=== PATIENT | male | born 2000 | race Asian ===

== ENCOUNTER 2022-04-30 21:51 | Emergency (ER) | payer OTHER ==
[2022-05-01 00:38] VITALS: BP 119/81
== END 2022-05-01 00:42 | disposition home or self-care (01) ==
LOC: M ED 21:51 → EDBD 21:51 → M ED 05-01 00:42
DX: T58.91XA Toxic effect of carbon monoxide from unspecified source, accidental (unintentional), initial encounter (principal)

== ENCOUNTER 2022-11-05 14:31 | Emergency (ER) | payer OTHER ==
[~2022-11-05] VITALS: Ht 165.1 cm; Wt 55.2 kg
[2022-11-05 14:33] VITALS: BP 115/73
== END 2022-11-05 15:54 | disposition home or self-care (01) ==
LOC: M ED 14:31
DX: S62.316A Displaced fracture of base of fifth metacarpal bone, right hand, initial encounter for closed fracture (principal); W20.8XXA Other cause of strike by thrown, projected or falling object, initial encounter; Y92.009 Unspecified place in unspecified non-institutional (private) residence as the place of occurrence of the external cause

== ENCOUNTER → 2022-11-18 | Outpatient (CLI) | payer OTHER | LOC: M SOG 09:30 | PROVIDERS: ATTEND Physician Assistant | DX: S62.306A Unspecified fracture of fifth metacarpal bone, right hand, initial encounter for closed fracture (principal) ==

== ENCOUNTER → 2022-12-19 | Outpatient (CLI) | payer OTHER | LOC: M SOG 11:12 | PROVIDERS: ATTEND Physician Assistant | DX: S62.306D Unspecified fracture of fifth metacarpal bone, right hand, subsequent encounter for fracture with routine healing (principal) ==

== ENCOUNTER → 2023-01-26 | Outpatient (CLI) | payer OTHER | LOC: M SOG 10:08 | PROVIDERS: ATTEND Physician Assistant | DX: S62.306D Unspecified fracture of fifth metacarpal bone, right hand, subsequent encounter for fracture with routine healing (principal) ==

== ENCOUNTER 2024-01-06 20:23 | Emergency (ER) | payer OTHER ==
[~2024-01-06] VITALS: Ht 165.1 cm; Wt 55.8 kg
[2024-01-06 20:23] VITALS: BP 134/64; TEMP 99.1; O2SAT 100
[2024-01-06] MEDS: IBUPROFEN 600MG TAB PO ONE (21:26)
== END 2024-01-06 21:53 | disposition home or self-care (01) ==
LOC: M ED 20:23
DX: S83.92XA Sprain of unspecified site of left knee, initial encounter (principal); M25.562 Pain in left knee; X50.0XXA Overexertion from strenuous movement or load, initial encounter; Y92.9 Unspecified place or not applicable; Y93.67 Activity, basketball; Y99.9 Unspecified external cause status

== ENCOUNTER 2024-04-01 14:08 | Emergency (ER) | payer OTHER ==
[~2024-04-01] VITALS: Ht 162.6 cm; Wt 52.3 kg
[2024-04-01 14:09] VITALS: BP 104/51; TEMP 98.9; O2SAT 98
== END 2024-04-01 17:40 | disposition home or self-care (01) ==
LOC: M ED 14:08
DX: S80.02XA Contusion of left knee, initial encounter (principal); W19.XXXA Unspecified fall, initial encounter; Y92.9 Unspecified place or not applicable; Y93.89 Activity, other specified; Y99.1 Military activity

== ENCOUNTER 2024-06-07 06:12 | Day surgery (SDC) | payer OTHER ==
[~2024-06-07] VITALS: Ht 165.1 cm; Wt 58.8 kg
[~2024-06-07 06:12] MED LIST: IBUP80TA PO; TRANEXAMIC ACID 100 MG/ML 10ML VIAL IV ONE
[2024-06-07] MEDS ORDERED: dexAMETHasone 10MG/1ML VIAL PRES.FREE PN ONE (06:45)
[2024-06-07] MEDS ORDERED: fentaNYL 100 MCG/2 ML INJECTION IV PRN ×2 (06:45→11:50)
[2024-06-07] MEDS ORDERED: ROPIvacaine 0.5% 30ML VIAL PN ONE (06:45)
[2024-06-07] MEDS ORDERED: MIDAZOLAM INJ 2MG/2ML VIAL IV PRN (06:45)
[2024-06-07] MEDS ORDERED: LIDOCAINE 2% INJ 100 MG/5 ML SYRINGE As Ordered ONE (07:08)
[2024-06-07] MEDS ORDERED: SUGAMMADEX SODIUM 500 MG/5 ML VIAL (BRIDION) As Ordered ONE (07:08)
[2024-06-07] MEDS ORDERED: ACETAMINOPHEN 1000MG/100ML IV BAG As Ordered ONE (07:08)
[2024-06-07] MEDS ORDERED: ONDANSETRON 4MG 2ML VIAL As Ordered ONE (07:08)
[2024-06-07] MEDS ORDERED: ROCURONIUM BROMIDE 50MG/5ML VIAL As Ordered ONE (07:08)
[2024-06-07] MEDS ORDERED: propofoL 200 MG/20 ML VIAL As Ordered ONE (07:08)
[2024-06-07] MEDS ORDERED: fentaNYL 100 MCG/2 ML INJECTION As Ordered ONE (07:09)
[2024-06-07] MEDS ORDERED: MIDAZOLAM INJ 2MG/2ML VIAL As Ordered ONE (07:09)
[2024-06-07] MEDS: LIDOCAINE W/EPINEPHRINE 1% 20ML VIAL As Ordered ONE (07:13)
[2024-06-07] MEDS: VANCOMYCIN 1000MG/20ML VIAL As Ordered ONE (07:13)
[2024-06-07] MEDS: NS 1,000 ML IV SCH (07:15)
[2024-06-07] MEDS ORDERED: LIDOCAINE 2% 100MG/5ML SDV (FOR ANES.) As Ordered ONE (07:24)
[2024-06-07] MEDS: fentaNYL 100 MCG/2 ML INJECTION IV PRN (07:37)
[2024-06-07] MEDS: MIDAZOLAM INJ 2MG/2ML VIAL IV PRN (07:37)
[2024-06-07] MEDS: dexAMETHasone 10MG/1ML VIAL PRES.FREE PN ONE (08:05)
[2024-06-07] MEDS: EPINEPHrine INJ 1 MG/ML 1ML AMP PN ONE (08:05)
[2024-06-07] MEDS: LIDOCAINE 1% SDV 5ML VIAL PN ONE (08:06)
[2024-06-07] MEDS: ROPIvacaine 0.5% 30ML VIAL PN ONE (08:06)
[2024-06-07] MEDS: ceFAZolin SOD 2 GM in IV 1 EA IV ONE (08:10)
[2024-06-07] MEDS: TRANEXAMIC ACID 100 MG/ML 10ML VIAL As Ordered ONE (08:20)
[2024-06-07] MEDS: EPINEPHrine INJ 1 MG/ML 1ML AMP As Ordered ONE (08:45)
[2024-06-07] MEDS ORDERED: dexmedeTOMIDine (4MCG/ML)200MCG/50ML BTL (PRECEDEX) As Ordered ONE (10:01)
[2024-06-07] MEDS ORDERED: KETOROLAC 60MG 2ML VIAL As Ordered ONE (11:49)
[2024-06-07] MEDS ORDERED: HYDROMORPHONE HCL 0.5 MG/ 0.5 ML SYRINGE IV PRN (11:50)
[2024-06-07] MEDS ORDERED: MEPERIDINE 25 MG/ML 1ML VIAL IV PRN (11:50)
[2024-06-07] MEDS ORDERED: diphenhydrAMINE 50MG/ML VIAL IV PRN (11:50)
[2024-06-07] MEDS ORDERED: ONDANSETRON 4MG 2ML VIAL IV PRN (11:50)
[2024-06-07] MEDS ORDERED: METOCLOPRAMIDE INJ 10MG/2ML VIAL IV PRN (11:50)
[2024-06-07] MEDS: oxyCODONE 5MG TAB PO PRN (13:15)
[2024-06-07 14:18] VITALS: BP 117/65; TEMP 98.2; O2SAT 99
== END 2024-06-07 14:21 | disposition home or self-care (01) ==
LOC: M SDC 06:12
PROVIDERS: ATTEND Orthopaedic Surgery
DX: M23.52 Chronic instability of knee, left knee (principal); M25.562 Pain in left knee
CPT/HCPCS: 29888; 64447; 73560; C1713; J0131; J0171; J0690; J1100; J1885; J2250; J2405; J3010

== ENCOUNTER 2025-06-04 23:10 | Emergency (ER) | payer OTHER ==
[~2025-06-04] VITALS: Ht 165.1 cm; Wt 55.6 kg
[~2025-06-04 23:10] MED LIST changes: -TRANEXAMIC ACID 100 MG/ML 10ML VIAL IV ONE
[2025-06-05] MEDS ORDERED: AMOX500C PO (00:42)
[2025-06-05] MEDS ORDERED: CIPRHCOTIC OTIC (00:42)
[2025-06-05 00:53] VITALS: BP 105/55; TEMP 97.8; O2SAT 98
== END 2025-06-05 00:52 | disposition home or self-care (01) ==
LOC: M ED 23:10
DX: H66.92 Otitis media, unspecified, left ear (principal); Z79.2 Long term (current) use of antibiotics